=== PATIENT | male | born 1955 | race Caucasian/White ===

== ENCOUNTER → 2018-07-01 08:32 | Outpatient (CLI) | payer OTHER, SELFPAY ==
[2018-07-01 14:42] LABS: Blood Urea Nitrogen 20 mg/dL (9-20); Carbon Dioxide 31 mmol/L (22-32); Chloride 103 mmol/L (98-107); Estimated Glomerular Filt Rate > 60.0 mL/min (>60); Glucose 110 mg/dL (80-110); HEMOLYSIS 26 (0-50); Potassium 4.3 mmol/L (3.4-5.1); Sodium 142 mmol/L (137-145)
== END ==
DX: I10 Essential (primary) hypertension (principal)
CPT/HCPCS: 36415; 80048

== ENCOUNTER → 2018-07-16 10:00 | Outpatient (CLI) | payer OTHER, SELFPAY | DX: Z23 Encounter for immunization (principal) | CPT/HCPCS: 90471; 90686 ==

== ENCOUNTER → 2018-11-21 13:53 | Outpatient (CLI) | payer OTHER, SELFPAY ==
--- NOTE | 2018-11-21 | DI.RAD.S_ITS ---
PROCEDURE: XR CHEST 2V INDICATIONS: Contact with and (suspected) exposure to asbestos TECHNIQUE: 2 views of the chest were acquired. COMPARISON: None. FINDINGS: Surgical changes and devices: Left-sided ventriculoperitoneal shunt catheter Lungs and pleura: No pleural effusions or pneumothorax. Lungs are clear. No radiographically visible calcified pleural plaques. Mediastinum: Mediastinal contours are normal. Heart size is normal. Bones and chest wall: No suspicious bony abnormalities. Soft tissues appear unremarkable. IMPRESSION: No acute disease. Dictated by: Tan Sethi M.D. on 11/21/2018 at 15:12 Approved by: Tan Sethi M.D. on 11/21/2018 at 15:13
== END ==
PROVIDERS: PCP Family Medicine; Visit Provider Family Medicine
DX: Z77.090 Contact with and (suspected) exposure to asbestos (principal)
CPT/HCPCS: 71046

== ENCOUNTER → 2018-12-25 13:54 | Outpatient (REF) | payer OTHER, SELFPAY | LOC: LAB 13:54 | PROVIDERS: PCP Family Medicine; Visit Provider Dermatology MOHS-Micrographic Surgery | DX: Z48.02 Encounter for removal of sutures (principal) | CPT/HCPCS: 87070; 87077 ==